=== PATIENT | male | born 1995 | race Two or more races ===

== ENCOUNTER 2021-11-13 12:09 | Emergency (ER) | payer OTHER, SELFPAY ==
--- NOTE | ~2021-11-13 | US_ITS ---
EXAMINATION: US SCROTUM CLINICAL INFORMATION: Palpable lump and tenderness. COMPARISON: None TECHNIQUE: A sonogram of the scrotum was performed assessing pandey-scale appearance and color Doppler flow. Spectral Doppler analysis of the arterial and venous flow were performed in the testes bilaterally. FINDINGS: RIGHT: Right testicle measures 4.7 x 2.7 x 3.0 cm, volume 19.9 mL. No focal testicular parenchymal lesions are visualized. An appendix testis is present. Spectral Doppler analysis of the arterial and venous flow is normal in the right testis. Right epididymal head is normal in size. A small 2 mm cyst is noted in the head of the epididymis. No right hydrocele or varicocele is seen. Right epididymal Doppler flow is normal. LEFT: Left testicle measures 4.5 x 2.3 x 2.8 cm, volume 15.2 mL. No focal testicular parenchymal lesions are visualized. An appendix testis is noted. Spectral Doppler analysis of the arterial and venous flow is normal in the left testis. Left epididymal head is normal in size. No left hydrocele or varicocele is seen. Left epididymal Doppler flow is normal. US/US scrotum IMPRESSION: Small bilateral hydroceles are present. There is a tiny cyst present in the head of the right epididymis. No other abnormality is seen.
[2021-11-13 13:04] VITALS: BP 123/77; PULSE 71; RESP 18; TEMP 36.6; O2SAT 100; BMI 25.8
--- NOTE | 2021-11-13 15:07 | ED.GENADULT ---
HPI - General Adult General Chief complaint: Skin/Abscess/Foreign Body Stated complaint: rash r chest shoulder swollen testicles Time Seen by Provider: 11/13/21 14:20 Source: patient Mode of arrival: ambulatory Limitations: no limitations History of Present Illness HPI narrative: Patient presents emergency department for evaluation of multiple complaints. He reports having a rash to the anterior chest for 1 month. It is intermittently pruritic and red, was evaluated at an urgent care and given hydrocortisone cream without significant improvement, was advised at the time this was heat rash. No rash continues to bother him, has not yet seen his primary care provider for this. It seems to be spreading further across his chest at this time. Denies any chest pains or shortness of breath difficulty breathing, similar rash in other parts of his body. Denies fevers, chills. Additional his reporting palpable lumps to his testicles. He 1st felt in 1 testicle, uncertain which, approximately 1-2 months ago. He then eventually was able to noticed the lump to the other testicle. He states that they are mildly uncomfortable if he sits on them. Otherwise denies it to be painful. Has not yet been evaluated for this. Denies any pain with urination, difficulty urinating, swelling or redness, of moving the nail discharge, nausea, vomiting, abdominal pain. Related Data Allergies Allergy/AdvReac Type Severity Reaction Status Date / Time No Known Allergies Allergy Verified 11/13/21 13:03 [facility] Social History Social History Advance Directives: No Advance Directives Information Provided: No Physical Exam ED Vital Signs: Vital Signs - 24 hr 11/13/21 13:04 11/13/21 17:22 Temperature 97.9 F 98.4 F Pulse Rate 71 64 Respiratory Rate 18 20 Blood Pressure 123/77 128/72 Pulse Oximetry 100 100 Oxygen Delivery Method Room Air Room Air BMI result Body Mass Index 25.8 Appearance: Alert.?Oriented to person, place and time. No acute distress.?Normal affect. Eyes: Pupils equal, round and reactive to light.? ENT: Pharynx normal.?? Neck: Normal inspection.? Neck supple.?? CVS: Heart sounds normal. Normal heart rate and rhythm.? Pulses normal.?? Respiratory: No respiratory distress.? Lung sounds clear to auscultation bilaterally?? Abdomen: Soft and non-tender. Normoactive bowel sounds. 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 Palpable testicular lumps, tenderness to palpation, no swelling, rash, warmth Skin: Skin warm and dry.? Normal skin color.? Anterior chest with diffused hypopigmented macule and patches. Extremities: No lower extremity edema.? Neuro: Moves all extremities spontaneously. Sensation intact bilaterally. No motor deficits Ambulates with normal steady gait. Course Course Course Narrative: Patient is a 26-year-old male with no significant past medical history. Presents emergency department for evaluation of rash to the anterior chest, consistent with tinea versicolor, advised for plan of care treatment with selenium sulfide shampoo apply and leave there for 10 minutes and then rinse off, daily, for 1 week. Advised outpatient follow-up with primary care provider as needed. Regarding the testicular lump, given tenderness upon palpation obtain ultrasound for further evaluation, suspect likely to be a cystic structure. Patient with no genitourinary symptoms, denies concern for sexually transmitted infection, will obtain testing for chlamydia and gonorrhea to exclude infection. Medical Decision Making Imaging Data scrotal US: Radiologist's impression: US/US scrotum IMPRESSION: Small bilateral hydroceles are present. There is a tiny cyst present in the head of the right epididymis. No other abnormality is seen. Discharge Plan Discharge Clinical Impression: Tinea versicolor, Hydrocele Patient Disposition: Home, Self-Care Instructions: Hydrocele (ED), Tinea Versicolor (ED) Additional Instructions: As discussed please purchase selenium sulfide/Selsun Blue shampoo from the pharmacy. Apply this to the areas of rash, leave on for 10 minutes, and then rinse off. This should be done daily for 1 week. The ultrasound of your testicles reveals presence of a hydrocele, which is a collection of fluid, between layers surrounding the testicle. These can sometimes developed over time on their own, however they can also be in relation to inflammation or infection. Testing for gonorrhea and chlamydia are pending at this time, you will receive a telephone call from the hospital symptoms resulted as positive. Hydroceles typically resolve on their own and do not require any treatment, however if you develop pain or additional symptoms in the consider evaluation with a urologist. Please contact your primary care provider in arrange for follow-up visit as needed You may return to the emergency department with any new or worsening symptoms or concerns.
[2021-11-13 17:22] VITALS: BP 128/72; PULSE 64; RESP 20; TEMP 36.9; O2SAT 100
[2021-11-14 05:09] LABS: CT PCR DETECTED (Not Detect.); NG PCR NOT DETECTED (Not Detect.)
== END 2021-11-13 18:28 | disposition home or self-care (01) ==
PROVIDERS: Nurse Practitioner Family; Emergency Provider Emergency Medicine
DX: B36.0 Pityriasis versicolor (principal); N43.3 Hydrocele, unspecified; A56.8 Sexually transmitted chlamydial infection of other sites
CPT/HCPCS: 76870; 87491; 87591; 99283; 99284